=== PATIENT | female | born 1930 | race Caucasian/White ===

== ENCOUNTER 2021-05-25 11:25 | Inpatient (IN) | payer MEDICARE, BC ==
[~2021-05-25] VITALS: Ht 160 cm; Wt 80.3 kg
--- NOTE | 2021-05-25 11:31 | NUR ---
HECTOR FROM [facility] C/O INTERMITTENT LLQ ABDOMINAL PAIN X1 WEEK. PAIN IS RATED 7/10 AND IS MORE OF A DISCOMFORT. DENIES N/V, TYRONE/CHILLS. NORMAL BOWEL MOVEMENTS. GLUCOSE 265 PER PARAMEDICS. NONAMBULATORY. ABDOMEN IS BLOATED AND SLIGHTLY TENDER TO PALPATION. MD AT BEDSIDE.
--- NOTE | 2021-05-25 11:40 | NUR ---
PT ON MONITOR
--- NOTE | 2021-05-25 11:46 | NUR ---
BLOOD SAMPLE OBTAINED AND SENT TO LAB
--- NOTE | 2021-05-25 11:46 | NUR ---
IRRIGATION EQUIPMENT MECHANIC AT BEDSIDE
--- NOTE | 2021-05-25 11:48 | NUR ---
PT TAKEN TO CT
[2021-05-25] MEDS ORDERED: FURO-145 PO (11:59)
[2021-05-25] MEDS ORDERED: MULT-1160 PO (11:59)
[2021-05-25] MEDS ORDERED: TRAZ-182 PO (11:59)
[2021-05-25] MEDS ORDERED: ACET-2605 PO (11:59)
[2021-05-25] MEDS ORDERED: LEVO75TA7 PO (11:59)
[2021-05-25] MEDS ORDERED: TROS20TA3 PO (11:59)
[2021-05-25] MEDS ORDERED: HYDR500C2 PO (11:59)
[2021-05-25] MEDS ORDERED: TURM538C PO (11:59)
[2021-05-25] MEDS ORDERED: UBID100C13 PO (11:59)
[2021-05-25] MEDS ORDERED: MELA5TAB PO (11:59)
[2021-05-25] MEDS ORDERED: CHOL100062 PO (11:59)
[2021-05-25] MEDS ORDERED: OMEG1CAP PO (11:59)
[2021-05-25] MEDS ORDERED: CA C1TAB98 PO (12:02)
--- NOTE | 2021-05-25 12:02 | NUR ---
[facility] [phone].
[2021-05-25 12:06] LABS: BASOPHILS # (AUTO) 0.2 K/uL (0.0-0.2); BASOPHILS % (AUTO) 0.3 % (0.0-2.0); EOSINOPHILS % (AUTO) 0.1 % (0.0-6.0); HEMATOCRIT 39 % (33-45); HEMOGLOBIN 12.7 g/dL (11.5-14.8); LYMPHOCYTES # (AUTO) 0.6 K/uL (0.8-4.8); MEAN CORPUSCULAR HGB CONC 33 g/dl (31.0-36.0); MEAN CORPUSCULAR VOLUME 117 fL (82-100); MONOCYTES # (AUTO) 1.6 K/uL (0.1-1.30); MONOCYTES % (AUTO) 2.8 % (2.0-12.0); NEUTROPHILS # (AUTO) 55.5 K/uL (1.8-8.9); NEUTROPHILS % (AUTO) 95.8 % (43.0-81.0); PLATELET COUNT (AUTO) 601 K/uL (150-450); RED BLOOD CELL COUNT(AUTO) 3.31 MIL/uL (4.0-5.2)
--- NOTE | 2021-05-25 12:07 | NUR ---
RETURNED FROM CT, BACK ON MONITOR, PLACED ON NASAL CANNULA 3L. VITALS ARE STABLE
[2021-05-25 12:10] LABS: WHITE BLOOD COUNT (AUTO) 57.9 K/uL (4.3-11.0)
[2021-05-25 12:16] LABS: CALCIUM, SERUM 10.8 mg/dL (8.5-10.1); CARBON DIOXIDE 27 mmol/L (21-32); CHLORIDE 98 mmol/L (98-107); GLUCOSE 250 mg/dL (74-106); POTASSIUM 5.1 mmol/L (3.5-5.1); SODIUM SERUM 133 mmol/L (136-145); UREA NITROGEN, BLOOD 39 mg/dL (7-18)
[2021-05-25 12:20] LABS: ALANINE AMINOTRANSFERASE 31 U/L (12-78); ALKALINE PHOSPHATASE 166 U/L (46-116); ASPARTATE AMINOTRANSFERASE 32 U/L (15-37); BILIRUBIN,DIRECT 0.1 mg/dL (0.0-0.2); BILIRUBIN,TOTAL 0.5 mg/dL (0.2-1.0); LIPASE 63 U/L (73-393); TOTAL PROTEIN, SERUM 7.9 g/dL (6.4-8.2)
[2021-05-25 12:49] LABS: BAND % (MANUAL) 2 % (0.0-5.0); LYMPHOCYTES % (MANUAL) 1 % (16-48); MONOCYTES % (MANUAL) 1 % (0-11.0); NEUTROPHILS % (MANUAL) 96 (42-76)
--- NOTE | 2021-05-25 12:55 | NUR ---
CALLED [facility] AND PAGED DR. MOYA
[2021-05-25] MEDS ORDERED: IV NS 0.9% 1,000 ML BAG IV ONE (13:00)
[2021-05-25] MEDS ORDERED: FLAGYL/NS RTU 500 MG/100 ML PIGGYBACK IV ONE (13:00)
[2021-05-25] MEDS ORDERED: PIPERACILLIN /TAZOBACTAM 3.375 G in IV D5W 50 ML IV ONE (13:00)
--- NOTE | 2021-05-25 13:00 | NUR ---
2ND IV STARTED IN L WRIST 18G
--- NOTE | 2021-05-25 13:10 | NUR ---
SRIDHAR'S PHONE ([place]arrato) [phone]. SON'S PHONE [phone].
--- NOTE | 2021-05-25 13:22 | NUR ---
ANIMAL SHELTER SUPERVISOR (ANNAT) [phone]
--- NOTE | 2021-05-25 13:23 | NUR ---
IV FLUIDS RUNNING. PT TOLERATING WELL
[2021-05-25] MEDS ORDERED: IV D5/0.45 NACL 1,000 ML IV PRN (14:00)
[2021-05-25] MEDS ORDERED: ONDANSETRON HCL/PF 4 MG/2 ML VIAL IVP PRN (14:00)
[2021-05-25] MEDS ORDERED: DEXTROSE 50%-WATER 50 ML DISP.SYRIN IV PRN (14:00)
[2021-05-25] MEDS ORDERED: Z GUARD REMEDY 2 OZ OINT TP PRN (14:00)
--- NOTE | 2021-05-25 14:28 | NUR ---
COVID PCR SAMPLE OBTAINED AND SENT TO LAB
[2021-05-25 14:30] VITALS: BP 160/103
--- NOTE | 2021-05-25 16:12 | NUR ---
REPORT GIVEN TO THE FLOOR NURSE; CONTINUE PLAN OF CARE ACCEPTED BY SURGERY - DR. CASTRO - AWARE - CASE PRESENTED BY DR. SAINZ
--- NOTE | 2021-05-25 16:30 | NUR ---
RN NOTES RECEIVED PT FROM ER, ON 2L NC WITH O2 SATURATION OF 95%, TEMP 98.3, HR 102, RR 18, BP 160/103. PT COMPLAINING OF ABDOMINAL DISCOMFORT AND DRY MOUTH. PT HAS RIGHT AC 20G SALINE LOCK, FLUSHED, WITH DRESSING DRY AND IN TACT. SKIN CHECK DONE, AND SKIN ISSUES DOCUMENTED WITH PICTURES IN THE CHART. BELONGINGS COLLECTED AND DOCUMENTED. ORIENTED TO ROOM, SAFETY MEASURES IN PLACE WITH BED IN LOWEST LOCKED POSITION, CALL LIGHT WITHIN REACH AND BED ALARM ON.
[2021-05-25] MEDS: ENOXAPARIN SODIUM 30 MG/0.3 ML DISP.SYRIN SQ SCH (17:23)
[2021-05-25] MEDS: METRONIDAZOLE 500MG/ NS 100ML 500 MG in PREMIX 1 EA IV SCH (17:29)
--- NOTE | 2021-05-25 17:30 | NUR ---
RN NOTES SPOKE WITH DAUGHTER, CHRISTINE NEGRO [phone]. WANTS TO BE UPDATED WITH PLAN OF CARE. COMMUNICATED WITH SURGEON REGARDING FAMILY CONCERNS. PT HAS A CORNER CUTTER MACHINE OPERATOR ANATT - [phone] WHO SHOULD BE KEPT UPDATED WITH CARE.
[2021-05-25] MEDS: MORPHINE SULFATE INJ 2 MG/ML DISP.SYRIN IV PRN (17:38)
--- NOTE | 2021-05-25 17:50 | NUR ---
RN NOTES PT COMPLAINING 8/10 ABDOMINAL PAIN, GAVE PRN MORPHINE.
[2021-05-25] MEDS ORDERED: ZOSYN IVPB 3.375 G in IV D5W 50ml IV SCH (18:00)
[2021-05-25] MEDS ORDERED: PIPERACILLIN /TAZOBACTAM 4.5 G in IV D5W 50 ML IV SCH (18:00)
--- NOTE | 2021-05-25 19:00 | NUR ---
RN NOTES PT NPO, TO HAVE PROCEDURE @8430 05/26, CONSENTS SIGNED AND IN THE CHART. ENDORSED TO NEXT SHIFT.
[2021-05-25] MEDS: BLOOD SUGAR DIAGNOSTIC 1 EACH STRIP IN SCH (19:03)
--- NOTE | 2021-05-25 19:10 | NUR ---
RN NOTES RECEIVED PATIENT IN BED A/O X4.NO SIGN OF DISTRESS, NO SOB. WITH OXYGEN INHALATION AT 2LPM VIA NASAL CANULA WITH SATURATION OF 99%. WITH IV ACCESS AT R AC G 20 AND L ARM G 18 PATENT FLUSHES WELL. WITH SANZ CATHETER CONNECTED TO URINE BAG DRAINING YELLOWISH URINE. SAFETY MEASURE IN PLACE, HOB ELEVATED, BED ON LOWEST POSITION AND LOCKED. CALL LIGHT WITHIN REACH. WILL CONTINUE TO MONITOR
[2021-05-25] MEDS: INSULIN REGULAR, HUMAN 100 UNIT/ML 3 ML VIAL SQ PRN (19:16)
--- NOTE | 2021-05-25 20:45 | NUR ---
RN NOTES SEEN BY BEL MENA WITH NEW ORDER TO COLLECT STOOL FOR C-DIFF
[2021-05-25] MEDS: CEFTRIAXONE 1 G in IV D5W 50 ML IV SCH (23:49)
[2021-05-26] VITALS: BP 114/48
--- NOTE | 2021-05-26 | NUR ---
BS 234 MG/DL, 4 UNITS REGULAR INSULIN PER SLIDING SCALE GIVEN
[2021-05-26] MEDS: INSULIN REGULAR, HUMAN 100 UNIT/ML 3 ML VIAL SQ PRN (00:32)
[2021-05-26] MEDS: METRONIDAZOLE 500MG/ NS 100ML 500 MG in PREMIX 1 EA IV SCH ×5 (00:34→23:57)
[2021-05-26] MEDS: BLOOD SUGAR DIAGNOSTIC 1 EACH STRIP IN SCH ×4 (05:24→23:58)
[2021-05-26] MEDS ORDERED: FENTANYL PF 100MCG/2ML AMPUL ONE (06:23)
[2021-05-26] MEDS ORDERED: HYDROMORPHONE INJ 2 MG/ML DISP.SYRIN ONE (06:24)
[2021-05-26] MEDS ORDERED: FENTANYL PF 250MCG/5ML AMPUL ONE (06:24)
[2021-05-26] MEDS ORDERED: MIDAZOLAM HCL 2 MG/2ML VIAL ONE (06:24)
[2021-05-26] MEDS ORDERED: ROCURONIUM BROMIDE 50 MG/5 ML ONE (06:25)
[2021-05-26] MEDS ORDERED: FAMOTIDINE/PF INJ 20 MG/2 ML VIAL IV ONE (06:25)
[2021-05-26] MEDS ORDERED: CLINDAMYCIN PHOSPHATE IV 600 MG/4 ML VIAL ONE (06:26)
--- NOTE | 2021-05-26 06:49 | NUR ---
RN CLOSING NOTES PATIENT IN BED NO DISTRESS, NO SOB. STILL WITH ONGOING IVF OF D5 1/2 NS @75CC/HR . WITH O2 INHALATION AT 2 LPM/MIN VIA NC TOLETARED WELL SATURATION OF 98%. WITH SANZ CONNECTED TO URINE BAG PATENT DRAINING WELL. ALL DUE MEDS GIVEN ORDERED. PATIENT STILL ON NPO. FOR OR TODAY CONSENT AT THE CHART. BELONGINGS WILL ENDORSED TO MORNING NURSE. SAFETY MEASURE IN PLACE, HOB ELEVATED, CALL LIGHT WITHIN REACH. ENDORSED
[2021-05-26] MEDS ORDERED: ANESTHESIA TRAY IN PYXIS 1 EA TRAY MC ONE (07:01)
[2021-05-26] MEDS ORDERED: BUPIVACAINE MPF 0.5% W/EPI INJ 30 ML VIAL ONE (07:02)
[2021-05-26] MEDS ORDERED: LIDOCAINE 1% INJ 50 ML MDV IJ ONE (07:02)
[2021-05-26] MEDS ORDERED: SEVOFLURANE 250 ML BOTTLE IH ONE (07:05)
--- NOTE | 2021-05-26 07:05 | NUR ---
CT SCAN SPECIAL PROCEDURES TECHNOLOGIST NOTES PT TAKEN TO PROCEDURE BY OR IN STABLE CONDITION.
--- NOTE | 2021-05-26 10:24 | NUR ---
AIRPLANE MECHANIC APPRENTICE NOTES [facility] AND IN TACT ON THE ABDOMEN. PT GIVEN ICE CHIPS PER MAE. COVID RAPID TEST DONE IN OR, CAME BACK NEGATIVE. VITAL SIGNS STABLE, TEMP 98.1, HR 84, RR 18, O2 SATURATION 97%, AND BP 104/59. PT TO RESUME D5 1/2 NS @ 75ML/HR.
[2021-05-26 10:30] VITALS: BP 104/59
[2021-05-26] MEDS: LEVOTHYROXINE INJ 100 MCG VIAL IV SCH (10:56)
[2021-05-26] MEDS: PANTOPRAZOLE 40 MG VIAL IV SCH (10:56)
[2021-05-26 12:00] VITALS: BP 112/40
[2021-05-26 12:15] LABS: BASOPHILS # (AUTO) 0.1 K/uL (0.0-0.2); BASOPHILS % (AUTO) 0.2 % (0.0-2.0); EOSINOPHILS % (AUTO) 0.1 % (0.0-6.0); HEMATOCRIT 36 % (33-45); HEMOGLOBIN 11.3 g/dL (11.5-14.8); LYMPHOCYTES # (AUTO) 0.6 K/uL (0.8-4.8); LYMPHOCYTES % (AUTO) 1.1 % (20.0-44.0); MEAN CORPUSCULAR HGB CONC 32 g/dl (31.0-36.0); MEAN CORPUSCULAR VOLUME 121 fL (82-100); MONOCYTES # (AUTO) 1.1 K/uL (0.1-1.30); MONOCYTES % (AUTO) 1.9 % (2.0-12.0); NEUTROPHILS % (AUTO) 96.7 % (43.0-81.0); PLATELET COUNT (AUTO) 449 K/uL (150-450); RED BLOOD CELL COUNT(AUTO) 2.97 MIL/uL (4.0-5.2)
[2021-05-26 12:25] LABS: WHITE BLOOD COUNT (AUTO) 57.8 K/uL (4.3-11.0)
[2021-05-26 12:35] LABS: CALCIUM, SERUM 9.1 mg/dL (8.5-10.1); CREATININE 0.8 mg/dL (0.6-1.3); MAGNESIUM 2.9 mg/dL (1.8-2.4); PHOSPHORUS 5.1 mg/dL (2.5-4.9); POTASSIUM 3.8 mmol/L (3.5-5.1)
[2021-05-26 13:38] LABS: THYROID STIMULATING HORMONE 6.07 uIU/mL (0.358-3.74)
[2021-05-26 15:20] LABS: LYMPHOCYTES % (MANUAL) 2 % (16-48); NEUTROPHILS % (MANUAL) 96 (42-76)
[2021-05-26 15:21] LABS: MONOCYTES % (MANUAL) 2 % (0-11.0)
[2021-05-26 16:00] VITALS: BP 98/53
--- NOTE | 2021-05-26 18:55 | NUR ---
WOODS OVERSEER NOTES PT STILL NPO, PER SURGERY OK TO HAVE ICE CHIPS. NO COMPLAINTS OF PAIN OR SOB AT THIS TIME. SAFETY MEASURES IN PLACE WITH HOB ELEVATED 30 DEGREESS, BED IN LOWEST LOCKED POSITION, CALL LIGHT WITHIN REACH AND BED ALARM ON.
[2021-05-26 20:00] VITALS: BP 97/53
[2021-05-26] MEDS: CEFTRIAXONE 1 G in IV D5W 50 ML IV SCH (20:51)
[2021-05-26] MEDS: IV NS 0.9% 1,000 ML IV PRN (20:51)
--- NOTE | 2021-05-26 20:51 | NUR ---
RN NOTE PATIENT NOTED WITH LEFT WRIST 18G IV WITH NO BLOOD RETURN. REMOVED. INTACT. REINSERTED 22G ON LEFT FOREARM, PATENT WITH GOOD BLOOD RETURN. PATIENT ON NS AT 100 ML/HR. TOLERATING WELL. NO INFILTRATION NOTED. CALL LIGHT WITHIN REACH.
[2021-05-26] MEDS: ENOXAPARIN SODIUM 30 MG/0.3 ML DISP.SYRIN SQ SCH (21:07)
[2021-05-27] VITALS (7 sets, daily range): BP systolic 98–112; BP diastolic 43–76
--- NOTE | 2021-05-27 | NUR ---
RN NOTE BS 106 AT THIS TIME. WILL CONTINUE TO MONITOR.
--- NOTE | 2021-05-27 00:10 | NUR ---
RN NOTE PATIENT NOTED WITH LEFT FOREARM 22 G IV INFILTRATED. REMOVED. PATIENT LEFT ARM ELEVATED. APPLIED PRESSURE AT SITE AND COVERED WITH GAUZE DRESSING. DENIES PAIN AT THE SITE. REINSERTED 24 G ON RIGHT FOREARM, PATENT WITH GOOD BLOOD RETURN. WILL CONTINUE TO MONITOR.
[2021-05-27] MEDS: IV NS 0.9% 1,000 ML IV PRN (05:12)
[2021-05-27] MEDS: METRONIDAZOLE 500MG/ NS 100ML 500 MG in PREMIX 1 EA IV SCH ×4 (05:18→23:05)
[2021-05-27] MEDS: BLOOD SUGAR DIAGNOSTIC 1 EACH STRIP IN SCH ×4 (05:37→23:43)
--- NOTE | 2021-05-27 07:39 | NUR ---
RN OPENING NOTES Patient Alert and oriented x 4, complains of pain on sacral wound. On NC 2 L. Call light placed within reach, bed at lowest position
[2021-05-27 07:47] LABS: BASOPHILS # (AUTO) 0.1 K/uL (0.0-0.2); BASOPHILS % (AUTO) 0.2 % (0.0-2.0); EOSINOPHILS % (AUTO) 0.4 % (0.0-6.0); HEMATOCRIT 34 % (33-45); HEMOGLOBIN 10.8 g/dL (11.5-14.8); LYMPHOCYTES # (AUTO) 1.1 K/uL (0.8-4.8); LYMPHOCYTES % (AUTO) 1.8 % (20.0-44.0); MEAN CORPUSCULAR HGB CONC 32 g/dl (31.0-36.0); MEAN CORPUSCULAR VOLUME 121 fL (82-100); MONOCYTES % (AUTO) 1.7 % (2.0-12.0); NEUTROPHILS # (AUTO) 55.5 K/uL (1.8-8.9); NEUTROPHILS % (AUTO) 95.9 % (43.0-81.0); PLATELET COUNT (AUTO) 443 K/uL (150-450); RED BLOOD CELL COUNT(AUTO) 2.84 MIL/uL (4.0-5.2)
[2021-05-27 07:50] LABS: ALBUMIN 2.4 g/dL (3.4-5.0); BILIRUBIN,TOTAL 0.3 mg/dL (0.2-1.0); CALCIUM, SERUM 8.5 mg/dL (8.5-10.1); CREATININE 0.8 mg/dL (0.6-1.3); MAGNESIUM 2.4 mg/dL (1.8-2.4); PHOSPHORUS 4.4 mg/dL (2.5-4.9); POTASSIUM 3.9 mmol/L (3.5-5.1); TOTAL PROTEIN, SERUM 6.7 g/dL (6.4-8.2)
[2021-05-27 07:58] LABS: WHITE BLOOD COUNT (AUTO) 57.8 K/uL (4.3-11.0)
[2021-05-27] MEDS: PANTOPRAZOLE 40 MG VIAL IV SCH (08:40)
[2021-05-27] MEDS: LEVOTHYROXINE INJ 100 MCG VIAL IV SCH (08:50)
--- NOTE | 2021-05-27 08:58 | NUR ---
WOUND CARE CONSULT: PT PRESENTS WITH SACRAL DEEP TISSUE INJURY IN EVOLUTION WITH SCARRING AND OPEN AREAS TO LOWER BUTTOCKS/GLUTEAL FOLDS, PRESENT ON ADMISSION. RECOMMENDATIONS MADE FOR SKIN PROTECTION. DISCUSSED WITH NURSING STAFF. SURGICAL CONSULT FOR SACRAL WOUND CALLED TO DR TORRES. PT BE PLACED ON FIRST STEP LOW AIRSS MATTRESS. IN AGREEMENT WITH PLAN OF CARE. Addendum: 05/27/21 at 0859 by BRYANNA CHO WNDNU Amended: Links added.
[2021-05-27 09:04] LABS: LYMPHOCYTES % (MANUAL) 3 % (16-48); MONOCYTES % (MANUAL) 4 % (0-11.0); NEUTROPHILS % (MANUAL) 93 (42-76)
--- NOTE | 2021-05-27 14:47 | NUR ---
SS Consult: SS consult requested for sacral wound from Facility. Pt. is an 89-year-old female wo was residing. During assessment, pt. is in bed laying down, oriented x3, alert, and cooperative. Pt. was capable of following directions and made appropriate eye contact during interview. Pt. reported no Hx of mental health, substance abuse, SI/HI and denies hallucinations. Pt. has been living at a [facility] [[address] [place] [address], ] since August of 2020. Pt. demonstrates adequate insight to the reason for hospitalization. Pt. stated she had abdominal pain, so the [facility] called the ambulance. Pt. had many scars on her face but avoided the question when asked by SW. Pt. stated that the [facility] handles her ADLs. SW assess for support system. Pt. stated the only support system are the [facility] and her daughter, Ernestina [[phone]]. Pt. has no complaints regarding care provided at facility. Pt. mentioned that Ernestina visits once a week. Pt. stated she is not ambulatory and uses an electric wheelchair. Plan: Pt. stated she would like to return to [facility] [[address] [place] [address], ] when ready for DC. SW provided pt. with senior resources and pt. accepted. ABUSE PREVENTION: ELDER ABUSE HOTLINE (21/02) ADULT PROTECTIVE SERVICES HOTLINE LONG-TERM CARE [facility] Region AREA ON AGING (HOTLINE) ADULT DAY HEALTH CARE CARE CENTERS: Private pay or Medi-tana funded adult day care [facility] , [facility] Services , [facility] , [facility] Adult Day Health Care , [facility] Adult Day Health Care , [facility] Adult Daycare Center , [place] ONE Generation Center , [place] [facility] , [place] ALZHEIMERS DISEASE/DEMENTIA: Alzheimers Association Helpline [facility] Chapter www.alz.org/[facility] Department of Aging www.lacity.org Family Caregiver [place] www.caregiver.org [place] Caregiver Resources Center/Family Support www.[facility].org CANCER RESOURCES: [place] Cancer Society www.cancer.org Cancer Support Community www.CancerSupportVvsb.org: CancerCare www.cancercare.org [facility] Cancer Support [place] www.sage[facility] healthcare - lander - lander.org [facility] ASSOCIATIONS: AARP www.aarp.org ALS Association (ask for Sri) www.als.org Egyptian Diabetes Association www.diabetes.org Egyptian Heart Association www.heart.org Egyptian Lung Association www.lungusa.org Egyptian Parkinson Disease Association www.apdaparkinson.org Egyptian [place] , www.redcross.org Arthritis Foundation www.arthritis.org Crohns & Colitis Foundation of Egyptian www.ccfa.org/chapters/samaria National Multiple Sclerosis Society www.nationalmssociety.org Myasthenia Gravis Foundation www.myasthenia-ca.org National Stroke Association www.stroke.org CONSERVATORSHIP & GUARDIANSHIP: AARP Rylie Wahl Legal Services Center for Health Care Rights Eldercare Information and Referral Water Quality Specialist [facility]: [facility] Bar Referral Service [facility] Legal Services Office of the Public Guardian [place] EYESIGHT DISORDER RESOURCES: Egyptian Macular Degeneration Foundation [facility] www.[facility] rich[facility] community hospitaltitdoe run.org GRIEF AND BEREAVEMENT RESOURCES: The Gathering Place , [facility] THE HOPE Connection , [facility] / [facility] Bereavement Center , [place] HEARING DISORDER RESOURCES: [place] Telephone Access Program Deaf and Disabled Telecommunications Program www.ddtp.[facility] gardens.ca.gov HearRx Hearing Centers ([place]) Better Hearing Systems , [place] GLAD ([facility] Agency on Deafness) V/ TTY; Applied Research Director , [facility] Hearing [facility] -low income hearing aid assistance www.[facility] punta gordafoundation.org [place] Hearing Care , Kamari HELP AT HOME CAREGIVER SUPPORT: In Home Support Services (Must have Medi-Tana to be eligible) *Ask for a list of agencies that provide services to assist with care in the home. Local Senior Centers also have listings of care providers. HOME SAFETY MODIFICATIONS AND EQUIPMENT: Senior centers have additional referrals. [place] Housing and Community Investment Dept. Handyworker Program (low income) or Visit http://hcidla.[facility].org/abz-aivqoj-pn for more information National Seating and Mobility and/or ; Forever Active www.foreveractivemed.Global Renewables Stay Home Safe www.Stayhomesafe.Global Renewables LIFE ALERT RESPONSE SYSTEM: MobiliBuy Services 606-243-9954 www. Ambient Industries Life Alert 069-905-2539 www.Peas-Corp Life Station 853-087-8119 www.Well.Global Renewables Safe Return 268-240-1342 www.alz.or/safereturn Cell Phones for Seniors www.Solvate MEALS AND FOOD PROGRAMS: [place]rell Meals on Wheels [phone] [place] Meals on Wheels [phone] [facility] [phone] [place] to the Homebound [phone] [place] to the Homebound [phone] [facility] to the Homebound [phone] [facility] to the Homebound [phone] [facility] Sumanth [place] [phone] [facility] Services [phone] ONE Generation [phone] [facility] [phone] [facility] [phone] Meals on Wheels [phone] For all ages: $6.85/ meal w side. Delivered M-F from 10 am-1pm. Application and payment is done over the phone. Frozen meals available for weekends. Emergency Food [facility] [phone] [facility] Feather Maker [phone] [facility] [phone] [facility]- Brown bag lunches [phone] [facility] [phone] MEAL/GROCERY DELIVERY PROGRAMS: FazalReplaced by [facility] Gourmet Meals [phone]- [facility] [phone]- [facility] Magic Kitchen [phone] Moms Meals [phone] (ask Muñiz for Discount Select grocery stores may provide delivery. MEDICAL INSURANCE SUPPORT SERVICES: Center for Health Care Rights [phone] Health Insurance Counseling/Advocacy Programs (HICAP)-Must have Medicare. Offers counseling for Medi-Tana eligibility [phone] Department of Public Feather Maker [phone] www.[facility].ca.gov Medicare [phone] www.socialsecurity.org Social Security [phone] SENIOR ACTIVITY PROGRAMS: *Contact a local senior center, adult school, recreation facility or community [facility] for education, fitness, recreation, and social programs. Aquatic Therapy and Adapted Exercise programs through [facility] [phone] Encore at [facility] [phone] www.motion picture & television hospital/encore [facility]- Senior Friends [phone] Jolly Senior Programs 166-797-2766 www.oasisnet.org Suddenly 65 www.igzucctw30.Global Renewables SENIOR CENTERS: [facility] [phone] [facility] Hospital[facility] [phone] [facility] [phone] [facility] [phone] [facility] [phone] [facility] [phone] [facility] [phone] [facility] [phone] One [facility] [phone] [facility] [phone] [facility] [phone] [facility] [phone] [facility] [phone] TRANSPORTATION: Local [facility] may have applications for transportation programs and additional resources. ACCESS Services [phone] Transportation for seniors and disabled persons 7 days a week requiring 254 hr. advance reservation. Must apply and register for program joyce eligible. CITY RIDE 301-635-8127 or [phone] Transportation for seniors and persons with ADA card/metro disabled card in the [facility]. M-F only. Must register for services. ONE GENERATION [phone] Serves 65 years + in conjunction with MD Synergy Solutions ride program. Must be registered with both programs. A to B Transport [phone] Provides wheelchair/gurney van service. Adult Medical Transport [phone] Accepts [facility]-tana with prior authorization. Care Van [phone] Provides wheelchair Transport. [facility] Wide Transportation [phone] Provides gurney service Gentle Care [phone] Gurney Transport. All Town Transportation [phone] wheelchair & gurney transport D Transportation [phone] wheelchair & gurney transport [place] Non-Emergency Transport [phone] wheelchair & gurney transport Independent Living Center [phone] Short Term Transportation primarily for adults with disabilities on social security income. Nominal fee may apply and a reservation is required. [facility] Cab [phone] or [phone] Faneari [phone] [place] [address] Referral Services -[phone] For additional programs & services VETERANS RESOURCES: Submissions for Aid and Attendance should be done directly to Federal VA office locatd at : [address] [address] X110 National Caregiver Support Line [phone] Tana Abbott Veterans Services Field Office [phone] [place] Department of Affairs [phone] Pension Information [phone]
[2021-05-27] MEDS ORDERED: METRONIDAZOLE 500 MG TABLET PO SCH (17:00)
--- NOTE | 2021-05-27 17:39 | NUR ---
PATIENT SANZ CLOGGED ,DIAPER SOAKED WITH URINE UNABLE TO FLUSH ,WILL CHANGE SANZ.
--- NOTE | 2021-05-27 18:00 | NUR ---
FR 16 mitchell inserted aseptically obtained 200ml yellowish color urine,bedside bag connected.
--- NOTE | 2021-05-27 18:26 | NUR ---
RN CLOSING NOTES: PT HAD MIDLINE ON CASI PLACED 18 GAUGE. RT. FOREARM IV's TAKEN OUT. Pt. A/O x 4, STABLE CONDITION, RESPONDS TO VERBAL STIMULI. SANZ CATHETER REPLACED DUE TO URINARY RETENTION. BED PLACED IN LOWEST POSITION. CALL LIGHT IN PLACE.
--- NOTE | 2021-05-27 20:00 | NUR ---
ms rn notes Received pts in bed awake a/o x4 , on tele sr on the monitor on 2 liters of o2 via nc [id number]%no sob no distress noted v/s stable afebrile no c/o of pain , all due meds given as ordered ,npo status may have ice chips . no sob no distress noted all needs attended too call light within reach , bed locked and in low position . with right upper arm midline G#18 intact and patent Pts on iv ns at 100cc/hr tolerating well. will continue to monitor pts.
[2021-05-27] MEDS: CEFTRIAXONE 1 G in IV D5W 50 ML IV SCH (20:09)
[2021-05-27] MEDS: ENOXAPARIN SODIUM 30 MG/0.3 ML DISP.SYRIN SQ SCH (21:22)
[2021-05-27] MEDS: IV D5/ 0.9% NACL 1,000 ML IV PRN (23:39)
--- NOTE | 2021-05-27 23:48 | NUR ---
ms rn notes Blood sugar for 12mn is 62 no coverage given spoke to german morales software implementation project manager relayed blood sugar result pts currently on ivf ns at 100cc/hr , carmen porter with new order change ivf to d5ns at 100cc/.hr order noted and carried oput.
[2021-05-28 04:00] VITALS: BP 117/53
[2021-05-28] MEDS: METRONIDAZOLE 500MG/ NS 100ML 500 MG in PREMIX 1 EA IV SCH ×4 (05:18→23:18)
[2021-05-28] MEDS: BLOOD SUGAR DIAGNOSTIC 1 EACH STRIP IN SCH ×3 (05:36→17:37)
[2021-05-28] MEDS: INSULIN REGULAR, HUMAN 100 UNIT/ML 3 ML VIAL SQ PRN (05:39)
--- NOTE | 2021-05-28 05:42 | NUR ---
ms rn notes Blood sugar for 6am is 81 , no insulin coverage given.
--- NOTE | 2021-05-28 06:30 | NUR ---
ms rn notes Pts in bed awake a/ox3 still npo may have icechips, with f/c intact and patent .pts is stable afebrile remains on ivf d5ns at 100 cc/hr ordered will endorse to rn day shift for continuity of care.
[2021-05-28 06:46] LABS: BASOPHILS # (AUTO) 0.1 K/uL (0.0-0.2); BASOPHILS % (AUTO) 0.2 % (0.0-2.0); EOSINOPHILS % (AUTO) 0.3 % (0.0-6.0); HEMATOCRIT 32 % (33-45); HEMOGLOBIN 10.4 g/dL (11.5-14.8); LYMPHOCYTES # (AUTO) 0.9 K/uL (0.8-4.8); LYMPHOCYTES % (AUTO) 1.9 % (20.0-44.0); MEAN CORPUSCULAR HGB CONC 32 g/dl (31.0-36.0); MEAN CORPUSCULAR VOLUME 120 fL (82-100); MONOCYTES # (AUTO) 0.9 K/uL (0.1-1.30); MONOCYTES % (AUTO) 1.8 % (2.0-12.0); NEUTROPHILS # (AUTO) 46.7 K/uL (1.8-8.9); NEUTROPHILS % (AUTO) 95.8 % (43.0-81.0); PLATELET COUNT (AUTO) 437 K/uL (150-450); RED BLOOD CELL COUNT(AUTO) 2.69 MIL/uL (4.0-5.2)
[2021-05-28 06:48] LABS: WHITE BLOOD COUNT (AUTO) 48.7 K/uL (4.3-11.0)
[2021-05-28 07:05] LABS: CALCIUM, SERUM 8.3 mg/dL (8.5-10.1); CREATININE 0.8 mg/dL (0.6-1.3); MAGNESIUM 1.9 mg/dL (1.8-2.4); PHOSPHORUS 3.2 mg/dL (2.5-4.9); POTASSIUM 3.5 mmol/L (3.5-5.1)
[2021-05-28] MEDS: LEVOTHYROXINE INJ 100 MCG VIAL IV SCH (07:51)
--- NOTE | 2021-05-28 08:03 | NUR ---
RN OPENING NOTE- PT IS AWAKE ALERT ORIENTED TO PERSON PLACE CONFUSED, VS STABLE, BS- 105. SANZ CATHETER DRAINING CLEAR YELLOW UA TO GRAVITY, IV FLUIDS D5 NS AT 100/HR,. ADJUSTED IN BED, SIDE RAILS UP, CALL LIGHT CLOSE, MONITOR
[2021-05-28 08:07] LABS: LYMPHOCYTES % (MANUAL) 5 % (16-48); MONOCYTES % (MANUAL) 2 % (0-11.0); NEUTROPHILS % (MANUAL) 93 (42-76)
[2021-05-28] MEDS: PANTOPRAZOLE 40 MG VIAL IV SCH (09:16)
[2021-05-28 12:00] VITALS: BP 114/50
--- NOTE | 2021-05-28 12:30 | NUR ---
RN NOTE- UA COLLECTED AND SENT FOR CX
--- NOTE | 2021-05-28 18:50 | NUR ---
RN CLOSING NOTE- PT CONFUSED IN BED, ALERT INTERACTIVE , VS STABLE, NPO X ICE CHIPS. DR FLORES ASSESSED PT AND PLACED ORDERS. SPOKE W CHRISTINE OF FAMILY. UPDATED. SIDE RAILS UP X 4, BED LOCKED, MONITOR ASSIST
[2021-05-28 20:00] VITALS: BP 91/50
--- NOTE | 2021-05-28 20:00 | NUR ---
ms rn notes Received pts in bed awake a/o x4 , On 2 liters of o2 via nc sating 98% ,no sob no distress noted v/s stable afebrile no c/o of pain , all due meds given as ordered ,CLEAR LIQUIDS , may have ice chips . no sob no distress noted all needs attended too call light within reach , bed locked and in low position . with right upper arm midline G#18 intact and patent Pts on iv D5ns at 100cc/hr tolerating well. will continue to monitor pts.
[2021-05-28] MEDS: CEFTRIAXONE 1 G in IV D5W 50 ML IV SCH (20:10)
[2021-05-28] MEDS: ENOXAPARIN SODIUM 30 MG/0.3 ML DISP.SYRIN SQ SCH (21:43)
[2021-05-29] MEDS: BLOOD SUGAR DIAGNOSTIC 1 EACH STRIP IN SCH ×5 (00:16→23:39)
--- NOTE | 2021-05-29 00:18 | NUR ---
ms rn notes Blood sugar for foe 12mn is 121 no insulin coverage given ,will check blood sugar again at 6am ,pts remain on d5ns at 100cc/hr as ordered.
[2021-05-29] MEDS: INSULIN REGULAR, HUMAN 100 UNIT/ML 3 ML VIAL SQ PRN ×3 (00:19→23:41)
[2021-05-29] MEDS: IV D5/ 0.9% NACL 1,000 ML IV PRN ×2 (02:56→15:08)
[2021-05-29 04:00] VITALS: BP 108/61
[2021-05-29] MEDS: METRONIDAZOLE 500MG/ NS 100ML 500 MG in PREMIX 1 EA IV SCH ×4 (05:04→23:39)
--- NOTE | 2021-05-29 05:24 | NUR ---
ms rn notes Blood sugar for 6am is 124 no coverage given per sliding scale.
--- NOTE | 2021-05-29 06:36 | NUR ---
ms rn notes Pts in bed awake a/ox3 awake comfortable in bed . with f/c intact and patent .pts is stable afebrile remains on ivf d5ns at 100 cc/hr ordered will endorse to rn day shift for continuity of care.
[2021-05-29 06:45] LABS: BASOPHILS # (AUTO) 0.2 K/uL (0.0-0.2); BASOPHILS % (AUTO) 0.4 % (0.0-2.0); EOSINOPHILS % (AUTO) 0.5 % (0.0-6.0); HEMATOCRIT 33 % (33-45); HEMOGLOBIN 10.5 g/dL (11.5-14.8); LYMPHOCYTES # (AUTO) 1.2 K/uL (0.8-4.8); LYMPHOCYTES % (AUTO) 2.9 % (20.0-44.0); MEAN CORPUSCULAR HGB CONC 32 g/dl (31.0-36.0); MEAN CORPUSCULAR VOLUME 119 fL (82-100); MONOCYTES # (AUTO) 1.3 K/uL (0.1-1.30); MONOCYTES % (AUTO) 3.2 % (2.0-12.0); NEUTROPHILS # (AUTO) 38.2 K/uL (1.8-8.9); PLATELET COUNT (AUTO) 409 K/uL (150-450); RED BLOOD CELL COUNT(AUTO) 2.77 MIL/uL (4.0-5.2)
[2021-05-29 07:09] LABS: CALCIUM, SERUM 7.8 mg/dL (8.5-10.1); CREATININE 0.6 mg/dL (0.6-1.3)
--- NOTE | 2021-05-29 07:15 | NUR ---
RN OPENING NOTE PATIENT IN BED, ASLEEP, BUT EASILY AROUSABLE. PATIENT ON OXYGEN AT 2 LPM VIA NASAL CANULA WITH NO SIGNS OF LABORED BREATHING AT THIS TIME. NO COMPLAIN OF PAIN OR DISCOMFORT. PATIENT WITH RIGHT UPPER ARM MIDLINE WITH IV FLUID OF D5NS RUNNING AT 100ML/HR. WITH SANZ CATHETER TO URINE BAG WITH YELLOWISH URINE DRAINING. COMFORT MEASURES PROVIDED. SAFETY MEASURES ENSURED WITH BED LOCKED AND IN LOWEST POSITION, SIDE RAILS UP AND CALL LIGHT WITHIN REACH. WILL CONTINUE TO MONITOR PATIENT.
[2021-05-29] MEDS: LEVOTHYROXINE INJ 100 MCG VIAL IV SCH (08:02)
[2021-05-29 08:06] LABS: BAND % (MANUAL) 2 % (0.0-5.0)
[2021-05-29 08:09] LABS: POTASSIUM 2.8 mmol/L (3.5-5.1)
[2021-05-29] MEDS: PANTOPRAZOLE 40 MG VIAL IV SCH (08:15)
[2021-05-29 08:27] LABS: EOSINOPHILS % (MANUAL) 1 % (0-4)
[2021-05-29 08:30] LABS: LYMPHOCYTES % (MANUAL) 1 % (16-48); MONOCYTES % (MANUAL) 2 % (0-11.0); NEUTROPHILS % (MANUAL) 94 (42-76)
--- NOTE | 2021-05-29 09:30 | NUR ---
MS RN NOTE WITH ONGOING REPLACEMENT FOR POTASSIUM CORRECTION. TO INFUSE 6 BAGS IN TOTAL. WILL MONITOR PATIENT CLOSELY
[2021-05-29] MEDS: POTASSIUM CL. PREMIX PERIPHER. 50 ML IV SCH ×6 (09:53→16:18)
[2021-05-29 12:00] VITALS: BP 128/65
--- NOTE | 2021-05-29 14:00 | NUR ---
RN NOTE PATIENT UNABLE TO SIGN CONSENT. DAUGHTER CHRISTINE AWARE ABOUT MD ORDER FOR HIDA SCAN. DAUGHTER SPOKE WITH DR. STORY AND AGREED WITH THE PROCEDURE. CONSENT SECURED AND ATTACHED TO CHART. PATIENT SCHEDULED FOR HIDA SCAN TODAY.
--- NOTE | 2021-05-29 14:00 | NUR ---
RN NOTE SEEN BY DR. STORY AND REFERRED TO DR. GARCIA (GI) WITH ORDERS MADE, READ BACK AND VERIFIED. WILL CONTINUE TO MONITOR PATIENT.
--- NOTE | 2021-05-29 18:15 | NUR ---
NM HIDA SCAN WAS COMPLETED. TECH:RB
--- NOTE | 2021-05-29 18:40 | NUR ---
RN CLOSINGNOTE PATIENT IN BED, ASLEEP, BUT EASILY AROUSABLE. PATIENT ON OXYGEN AT 2 LPM VIA NASAL CANULA WITH NO SIGNS OF LABORED BREATHING AT THIS TIME. NO COMPLAIN OF PAIN OR DISCOMFORT. PATIENT WITH RIGHT UPPER ARM MIDLINE WITH IV FLUID OF D5NS RUNNING AT 100ML/HR. WITH SANZ CATHETER TO URINE BAG WITH YELLOWISH URINE DRAINING. AWAITING PICK-UP FOR NEXT ROUND OF HIDA SCAN. COMFORT MEASURES PROVIDED. SAFETY MEASURES ENSURED WITH BED LOCKED AND IN LOWEST POSITION, SIDE RAILS UP AND CALL LIGHT WITHIN REACH. WILL ENDORSE TO NEXT SHIFT FOR CONTINUITY OF CARE.
--- NOTE | 2021-05-29 19:00 | NUR ---
alert and orientated x4 02 on n/c she is compaining she doesn't want to wear the o2 no longer bed alarm on
[2021-05-29 20:00] VITALS: BP 110/61
[2021-05-29] MEDS: CEFTRIAXONE 1 G in IV D5W 50 ML IV SCH (20:18)
[2021-05-29] MEDS: ENOXAPARIN SODIUM 30 MG/0.3 ML DISP.SYRIN SQ SCH (21:44)
[2021-05-30 04:53] VITALS: BP 123/82
[2021-05-30] MEDS: METRONIDAZOLE 500MG/ NS 100ML 500 MG in PREMIX 1 EA IV SCH ×2 (05:32→12:58)
[2021-05-30] MEDS: IV D5/ 0.9% NACL 1,000 ML IV PRN ×2 (05:34→20:33)
[2021-05-30] MEDS: BLOOD SUGAR DIAGNOSTIC 1 EACH STRIP IN SCH ×4 (05:44→23:45)
[2021-05-30] MEDS: INSULIN REGULAR, HUMAN 100 UNIT/ML 3 ML VIAL SQ PRN (05:52)
--- NOTE | 2021-05-30 05:59 | NUR ---
CLOSING NOTES: ALERT AND ORIENTATED x4 CHANGED THE DRESSING ON HER SACRAL AREA d/t DRESSING SOILED BY HER HAVING SMALL MUSHY BM INCONTINENT NEEDS MAX ASSIST TO BE REPOSITIONED AND PULLED UP IN HER BED, WHEN TURNED TO HER SIDES AND EXPLAINATION GIVEN TO THE PATIENT WHY THIS NEED TO BE DONE SHE WILL TELL ME SHE CAN'T SLEEP ON HER SIDES SHE NEEDS TO BE ON HER BACK bLOOD SUGAR THIS am 153 2 UNITS REG INSULIN GIVEN ORDERED
[2021-05-30 06:24] LABS: BASOPHILS # (AUTO) 0.2 K/uL (0.0-0.2); BASOPHILS % (AUTO) 0.4 % (0.0-2.0); EOSINOPHILS % (AUTO) 0.5 % (0.0-6.0); HEMATOCRIT 33 % (33-45); HEMOGLOBIN 10.5 g/dL (11.5-14.8); LYMPHOCYTES # (AUTO) 1.2 K/uL (0.8-4.8); LYMPHOCYTES % (AUTO) 2.5 % (20.0-44.0); MEAN CORPUSCULAR HGB CONC 32 g/dl (31.0-36.0); MEAN CORPUSCULAR VOLUME 119 fL (82-100); MONOCYTES # (AUTO) 1.8 K/uL (0.1-1.30); MONOCYTES % (AUTO) 3.7 % (2.0-12.0); NEUTROPHILS # (AUTO) 45.3 K/uL (1.8-8.9); NEUTROPHILS % (AUTO) 92.9 % (43.0-81.0); PLATELET COUNT (AUTO) 421 K/uL (150-450); RED BLOOD CELL COUNT(AUTO) 2.74 MIL/uL (4.0-5.2)
[2021-05-30 06:43] LABS: ALBUMIN 2.2 g/dL (3.4-5.0); BILIRUBIN,TOTAL 0.3 mg/dL (0.2-1.0); CALCIUM, SERUM 7.7 mg/dL (8.5-10.1); CREATININE 0.6 mg/dL (0.6-1.3); MAGNESIUM 1.4 mg/dL (1.8-2.4); PHOSPHORUS 1.2 mg/dL (2.5-4.9); POTASSIUM 3.1 mmol/L (3.5-5.1); TOTAL PROTEIN, SERUM 6.3 g/dL (6.4-8.2)
[2021-05-30 06:51] LABS: WHITE BLOOD COUNT (AUTO) 48.7 K/uL (4.3-11.0)
--- NOTE | 2021-05-30 07:40 | NUR ---
NURSE OPENING NOTE. RECEIVE REPORT FROM OUT GOING NURSE. PATIENT IN STABLE CONDITION AT TIME OF REPORT. PATIENT IS POST LAP EXP. A/O X4. BEDREST. NS @ 100ML/HR. REFUSE TO BE TURN ON HER SIDE PER REPORT GIVEN. ALL SAFETY MEASURE IN PLACE. BED ON THE LOWEST POSITION WITH HOB ELEVATED. 3 SIDE RAIL UP. CALL LIGHT WITHIN REACH. WILL CONTINUE TO MONITOR.
[2021-05-30] MEDS: LEVOTHYROXINE INJ 100 MCG VIAL IV SCH (08:00)
[2021-05-30] MEDS: Magnesium 1GM/D5W 100ML PREMIX 100 ML IV SCH ×4 (08:09→11:52)
[2021-05-30] MEDS: PANTOPRAZOLE 40 MG VIAL IV SCH (08:44)
[2021-05-30] MEDS: POTASSIUM CL. PREMIX PERIPHER. 50 ML IV SCH ×4 (08:56→13:08)
[2021-05-30 09:07] LABS: IMMUNOGLOBULIN A, SERUM 207 mg/dL (64-422); IMMUNOGLOBULIN G, SERUM 1444 mg/dL (586-1602); IMMUNOGLOBULIN M, SERUM 344 mg/dL (26-217)
[2021-05-30 10:53] LABS: LYMPHOCYTES % (MANUAL) 2 % (16-48); MONOCYTES % (MANUAL) 2 % (0-11.0); NEUTROPHILS % (MANUAL) 96 (42-76)
[2021-05-30] MEDS ORDERED: NEUTRA PHOS 1 POWD.PACKET PO ONE (11:00)
[2021-05-30 12:00] VITALS: BP 108/75
[2021-05-30] MEDS: METRONIDAZOLE 500 MG TABLET PO SCH ×2 (17:02→21:00)
--- NOTE | 2021-05-30 19:30 | NUR ---
RN NOTES Received patien awake on her bed,a/o3, F/C draining light tea colored urine, denies pain, no SOB, call light within reach, siderailsupx2, will continue to monitor
[2021-05-30 20:00] VITALS: BP 128/69
[2021-05-30] MEDS: CEFTRIAXONE 1 G in IV D5W 50 ML IV SCH (20:33)
[2021-05-30] MEDS: ENOXAPARIN SODIUM 30 MG/0.3 ML DISP.SYRIN SQ SCH (22:06)
[2021-05-31 04:00] VITALS: BP 127/76
[2021-05-31] MEDS: IV D5/ 0.9% NACL 1,000 ML IV PRN (05:30)
[2021-05-31] MEDS: BLOOD SUGAR DIAGNOSTIC 1 EACH STRIP IN SCH ×3 (05:30→18:45)
--- NOTE | 2021-05-31 06:20 | NUR ---
RN NOTES Sleeping but arousable, denies pain, no SOB, morning care rendered, pt. needs attended
[2021-05-31 07:03] LABS: BASOPHILS # (AUTO) 0.1 K/uL (0.0-0.2); BASOPHILS % (AUTO) 0.3 % (0.0-2.0); EOSINOPHILS % (AUTO) 0.7 % (0.0-6.0); HEMATOCRIT 34 % (33-45); HEMOGLOBIN 10.8 g/dL (11.5-14.8); LYMPHOCYTES # (AUTO) 1.4 K/uL (0.8-4.8); LYMPHOCYTES % (AUTO) 2.9 % (20.0-44.0); MEAN CORPUSCULAR HGB CONC 32 g/dl (31.0-36.0); MEAN CORPUSCULAR VOLUME 119 fL (82-100); MONOCYTES # (AUTO) 2.1 K/uL (0.1-1.30); MONOCYTES % (AUTO) 4.4 % (2.0-12.0); NEUTROPHILS # (AUTO) 43.8 K/uL (1.8-8.9); NEUTROPHILS % (AUTO) 91.7 % (43.0-81.0); PLATELET COUNT (AUTO) 408 K/uL (150-450); RED BLOOD CELL COUNT(AUTO) 2.87 MIL/uL (4.0-5.2)
[2021-05-31] MEDS: LEVOTHYROXINE INJ 100 MCG VIAL IV SCH (07:30)
[2021-05-31 07:44] LABS: CALCIUM, SERUM 7.5 mg/dL (8.5-10.1); CARBON DIOXIDE 25 mmol/L (21-32); CHLORIDE 110 mmol/L (98-107); CREATININE 0.5 mg/dL (0.6-1.3); GLUCOSE 179 mg/dL (74-106); PHOSPHORUS 1.5 mg/dL (2.5-4.9); POTASSIUM 3.1 mmol/L (3.5-5.1); SODIUM SERUM 142 mmol/L (136-145); UREA NITROGEN, BLOOD 7 mg/dL (7-18)
[2021-05-31 07:47] LABS: WHITE BLOOD COUNT (AUTO) 47.7 K/uL (4.3-11.0)
--- NOTE | 2021-05-31 07:50 | NUR ---
RN NOTE PER LAB CRITICAL WBC OF 47.7. PAGED MD Kellie FOXSIAN THROUGH [employer]. MD NOTIFIED. NO ORDERS PLACED.
[2021-05-31] MEDS: METRONIDAZOLE 500 MG TABLET PO SCH ×4 (08:01→21:29)
[2021-05-31] MEDS: PANTOPRAZOLE 40 MG/PACK PACK PO SCH (08:01)
[2021-05-31] MEDS ORDERED: Sodium Phosphate 15 MMOL in IV NS 0.9% 245 ML IV SCH (10:00)
[2021-05-31] MEDS: POTASSIUM CL. PREMIX PERIPHER. 50 ML IV SCH ×4 (10:10→15:41)
[2021-05-31 12:00] VITALS: BP 128/53
[2021-05-31 13:36] LABS: BAND % (MANUAL) 2 % (0.0-5.0); LYMPHOCYTES % (MANUAL) 1 % (16-48); MONOCYTES % (MANUAL) 3 % (0-11.0); NEUTROPHILS % (MANUAL) 94 (42-76)
[2021-05-31] MEDS: INSULIN REGULAR, HUMAN 100 UNIT/ML 3 ML VIAL SQ PRN ×2 (13:46→19:23)
--- NOTE | 2021-05-31 14:00 | NUR ---
RN NOTE GI CONSULT COMPLETED PER DR. BARDALES. EXPLAINED TO PT ABOUT UPCOMING PROCEDURES. NO ORDERS PLACED
[2021-05-31] MEDS: IV NS 0.9% 1,000 ML IV SCH (18:32)
--- NOTE | 2021-05-31 19:00 | NUR ---
RN OPENING NOTES RECEIVED REPORT FROM MORNING NURSE. PATIENT IN BED NO SOB NO DISTRESS. ON 2LPM VIA NC TOLERATED WELL. WITH R UA MIDLINE PATENT FLUSHES WELL. WITH ONGOING IVF OF PNS @ 125CC/HR. WITH SANZ CATHETER CONNECTED TO URINE BAG DRAINING WELL. VITAL SIGNS TAKEN AND RECORDED. HOB ELEVATED. CALL LIGHT WITHIN REACH. WILL CONTINUE TO MONITOR CLOSELY
[2021-05-31 20:00] VITALS: BP 140/70
[2021-05-31] MEDS: CEFTRIAXONE 1 G in IV D5W 50 ML IV SCH (21:30)
[2021-05-31] MEDS: ENOXAPARIN SODIUM 30 MG/0.3 ML DISP.SYRIN SQ SCH (21:34)
[2021-06-01] MEDS: BLOOD SUGAR DIAGNOSTIC 1 EACH STRIP IN SCH ×5 (00:42→23:32)
[2021-06-01 04:00] VITALS: BP 140/61
[2021-06-01] MEDS: IV NS 0.9% 1,000 ML IV SCH ×3 (05:26→20:44)
[2021-06-01 06:06] LABS: *SPE A/G RATIO 0.8 (0.7-1.7); *SPE ALPHA-1-GLOBULIN 0.3 g/dL (0.0-0.4); *SPE ALPHA-2-GLOBULIN 0.6 g/dL (0.4-1.0); *SPE BETA GLOBULIN 0.6 g/dL (0.7-1.3); *SPE M-SPIKE Not Observed g/dL (Not Observed)
[2021-06-01] MEDS: INSULIN REGULAR, HUMAN 100 UNIT/ML 3 ML VIAL SQ PRN ×4 (07:14→23:33)
--- NOTE | 2021-06-01 07:15 | NUR ---
RN NOTES PATIENT REMAINS IN STABLE CONDITION NO SOB NO DISTRESS, NO PAIN NOTED DURING THIS SHIFT. PATIENT STILL ON OXYGEN INHALATION 3LP VIA NC TOLERATED WELL. ALL SAFETY MEASURE IN PLACE, HOB ELEVATED, CALL LIGHT WITHIN REACH. ALL DUE MEDS GIVEN ORDERED. ALL NEEDS ATTENDED. ENDORSED
[2021-06-01 07:23] LABS: BASOPHILS # (AUTO) 0.2 K/uL (0.0-0.2); BASOPHILS % (AUTO) 0.3 % (0.0-2.0); EOSINOPHILS % (AUTO) 0.8 % (0.0-6.0); HEMATOCRIT 36 % (33-45); HEMOGLOBIN 11.3 g/dL (11.5-14.8); LYMPHOCYTES # (AUTO) 1.7 K/uL (0.8-4.8); LYMPHOCYTES % (AUTO) 3.2 % (20.0-44.0); MEAN CORPUSCULAR HGB CONC 31 g/dl (31.0-36.0); MEAN CORPUSCULAR VOLUME 120 fL (82-100); MONOCYTES # (AUTO) 2.4 K/uL (0.1-1.30); MONOCYTES % (AUTO) 4.6 % (2.0-12.0); NEUTROPHILS # (AUTO) 48.4 K/uL (1.8-8.9); NEUTROPHILS % (AUTO) 91.1 % (43.0-81.0); PLATELET COUNT (AUTO) 433 K/uL (150-450); RED BLOOD CELL COUNT(AUTO) 2.99 MIL/uL (4.0-5.2)
--- NOTE | 2021-06-01 07:30 | NUR ---
RN OPENING NOTES MED SURGE RECEIVED PATIENT IN BED NO SIGNS OF SOB AT THIS TIME ON 3LPM VIA NC WELL TOLERATED, O2 SAT 98%. WITH RIGHT UPPER MIDLINE FLUSHING WELL. WITH ONGOING NS 125ML/HR. SANZ CATHETER CONNECTED TO URINE BAG DRAINING WELL, WILL FOLLOW UP WITH LABORATORY FOR POTASSIUM RESULTS. SAFETY MEASUREMENTS IMPLEMENTED. HOB ELEVATED, BED ON ITS LOWEST POSITION, CALL LIGHT WITHIN REACH. WILL CONTINUE TO MONITOR.
[2021-06-01 07:33] LABS: WHITE BLOOD COUNT (AUTO) 53.1 K/uL (4.3-11.0)
--- NOTE | 2021-06-01 07:35 | NUR ---
RN NOTES CRITICAL RESULT WBC 53.[address] BENEDICT STORY. NNO
[2021-06-01 08:00] VITALS: BP 104/64
[2021-06-01] MEDS: METRONIDAZOLE 500 MG TABLET PO SCH ×4 (08:19→21:12)
[2021-06-01] MEDS: PANTOPRAZOLE 40 MG/PACK PACK PO SCH (08:19)
[2021-06-01] MEDS: LEVOTHYROXINE INJ 100 MCG VIAL IV SCH (08:22)
[2021-06-01 08:23] LABS: CALCIUM, SERUM 7.6 mg/dL (8.5-10.1); CREATININE 0.6 mg/dL (0.6-1.3); MAGNESIUM 1.9 mg/dL (1.8-2.4); PHOSPHORUS 2.1 mg/dL (2.5-4.9); POTASSIUM 3.5 mmol/L (3.5-5.1)
[2021-06-01 09:45] LABS: BAND % (MANUAL) 2 % (0.0-5.0); MONOCYTES % (MANUAL) 2 % (0-11.0); MYELOCYTES % 1 % (0-0); NEUTROPHILS % (MANUAL) 95 (42-76)
[2021-06-01] MEDS ORDERED: Sodium Phosphate 30 MMOL in IV NS 0.9% 250 ML IV SCH (10:00)
[2021-06-01 13:45] LABS: LYMPHOCYTES % (MANUAL) 0 % (16-48)
--- NOTE | 2021-06-01 14:32 | NUR ---
RN NOTES REQUEST FOR RELEASE OF AUTHORIZATION FOR THIS PATIENT, PER [facility], THEIR FAX IS DOWN AND THE ONLY WAY IS TO SEND RECORDS VIA MAIL OR EMAIL. AWAITING RESPONSE/ANSWER FROM [facility] FOR MEDICAL RECORDS. PLEASE CHECK [facility] EMAIL INBOX.
--- NOTE | 2021-06-01 14:56 | NUR ---
RN NOTES SENT A MESSAGE TO DR. CASTRO ORDER FOR XR UPPER GI W GASTROGRAFFIN FOR ABDOMINAL DRAINAGE. PER RADIOLOGIST, PROCEDURE WILL NOT DO MUCH FOR ABDOMINAL DRAINAGE BUT RATHER A SMALL BOWEL FOLLOW THROUGH WILL BE BETTER. WAITING FOR DR. CASTRO'S REPLY
[2021-06-01 16:00] VITALS: BP 122/54
--- NOTE | 2021-06-01 18:26 | NUR ---
RN NOTES PER DAUGHTER CHRISTINE - SHE WAS BALE TO SPEAK WITH [place] CONDITIONER TUMBLER OPERATOR RE WBC RESULTS OF THER MOM IN MAR 19, 2021 - WBC 32.4 PLATELET WAS 525,000, SEPTEMBER 2020 - WBC 41.1, SEPTEMBER 2020 - WBC 23.1 SHE ALSO TALKED TO DR. CASTRO AND PER TO RELAY RESULTS TO DR. BENEDICT STORY PER DAUGHTER IF THESE RESULTS COULD HELP, SHE WANTS HER MOTHER TO GET DISCHARGED TOMORROW
--- NOTE | 2021-06-01 18:31 | NUR ---
RN NOTES ALSO YOU COULD REACH THEIR [place] PARTITION ASSEMBLY MACHINE OPERATOR DR. RENEE AT [phone]
--- NOTE | 2021-06-01 19:00 | NUR ---
RN CLOSING NOTES MED SURGE PATIENT IS IN BED, RESTING, ALERT AND ORIENTED X3-4 PATIENT IS ON OXYGEN AT 3 LPM VIA NASAL CANULA WITH NO SIGNS OF LABORED BREATHING AT THIS TIME. NO COMPLAIN OF PAIN OR DISCOMFORT. 75% INTAKE ACHIEVED, PATIENT WITH RIGHT UPPER ARM MIDLINE CLEAN AND PATENT, IV FLUID SODIUM CHLORIDE 125 MIL/HR RUNNING. PT IS WITH SANZ CATHETER TO URINE BAG WITH YELLOWISH URINE DRAINING. COMFORT MEASURES PROVIDED. SAFETY MEASURES IN PLACE WITH BED LOCKED AND IN LOWEST POSITION, SIDE RAILS UP AND CALL LIGHT WITHIN REACH. ALL NEEDS MET WILL ENDORSE TO NEXT SHIFT FOR CONTINUITY OF CARE.
--- NOTE | 2021-06-01 19:56 | NUR ---
RN NOTE PATIENT ALERT AND ORIENTED X3, ABLE TO MAKE NEEDS KNOWN. ON O2 3L VIA NASAL CANNULA, NO S/S OF RESPIRATORY DISTRESS. DENIES ANY PAIN AT THIS TIME. CASI MIDLINE NOTED INFUSING NS @ 125ML/HR, NO S/S OF INFILTRATION. BED LOCKED AND IN LOWEST POSITION. CALL LIGHT WITHIN REACH. ALL NEEDS ANTICIPATED.
[2021-06-01 20:00] VITALS: BP 123/58
[2021-06-01] MEDS: ENOXAPARIN SODIUM 30 MG/0.3 ML DISP.SYRIN SQ SCH (21:16)
[2021-06-02] MEDS: IV NS 0.9% 1,000 ML IV SCH ×3 (02:46→18:38)
[2021-06-02 04:00] VITALS: BP 114/61
[2021-06-02] MEDS: BLOOD SUGAR DIAGNOSTIC 1 EACH STRIP IN SCH ×3 (06:01→18:17)
[2021-06-02] MEDS: INSULIN REGULAR, HUMAN 100 UNIT/ML 3 ML VIAL SQ PRN ×2 (06:02→18:32)
[2021-06-02 06:37] LABS: BASOPHILS # (AUTO) 0.1 K/uL (0.0-0.2); BASOPHILS % (AUTO) 0.2 % (0.0-2.0); EOSINOPHILS % (AUTO) 0.5 % (0.0-6.0); HEMATOCRIT 32 % (33-45); HEMOGLOBIN 10.1 g/dL (11.5-14.8); LYMPHOCYTES # (AUTO) 1.3 K/uL (0.8-4.8); LYMPHOCYTES % (AUTO) 2.4 % (20.0-44.0); MEAN CORPUSCULAR HGB CONC 31 g/dl (31.0-36.0); MEAN CORPUSCULAR VOLUME 120 fL (82-100); MONOCYTES # (AUTO) 1.7 K/uL (0.1-1.30); NEUTROPHILS # (AUTO) 51.7 K/uL (1.8-8.9); NEUTROPHILS % (AUTO) 93.9 % (43.0-81.0); PLATELET COUNT (AUTO) 416 K/uL (150-450); RED BLOOD CELL COUNT(AUTO) 2.69 MIL/uL (4.0-5.2)
--- NOTE | 2021-06-02 07:13 | NUR ---
RN NOTE PATIENT ALERT AND ORIENTED X3. ON O2 4L VIA NASAL CANNULA, O2 SAT 94%. CASI MIDLINE NOTED INFUSING NS @ 125ML/HR, NO S/S OF INFILTRATION. KEPT CLEAN, DRY, AND COMFORTABLE. BED LOCKED AND IN LOWEST POSITION. CALL LIGHT WITHIN REACH. WILL ENDORSE TO AM SHIFT.
--- NOTE | 2021-06-02 08:00 | NUR ---
RN NOTE PER LAB CRITICAL LAB WBC OF 55.0. NOTIFIED DIRECTOR OF RESERVATIONS MAAME ORTEGA.
[2021-06-02] MEDS: PANTOPRAZOLE 40 MG/PACK PACK PO SCH (08:58)
[2021-06-02] MEDS: METRONIDAZOLE 500 MG TABLET PO SCH ×4 (08:59→20:42)
[2021-06-02] MEDS: LEVOTHYROXINE INJ 100 MCG VIAL IV SCH (09:00)
[2021-06-02 09:07] LABS: CALCIUM, SERUM 7.4 mg/dL (8.5-10.1); CREATININE 0.6 mg/dL (0.6-1.3); POTASSIUM 3.4 mmol/L (3.5-5.1)
[2021-06-02 09:34] LABS: ALBUMIN 1.9 g/dL (3.4-5.0); BILIRUBIN,TOTAL 0.1 mg/dL (0.2-1.0); MAGNESIUM 1.6 mg/dL (1.8-2.4); PHOSPHORUS 2.9 mg/dL (2.5-4.9); TOTAL PROTEIN, SERUM 5.9 g/dL (6.4-8.2)
[2021-06-02 12:00] VITALS: BP 137/51
[2021-06-02 12:43] LABS: BAND % (MANUAL) 1 % (0.0-5.0); LYMPHOCYTES % (MANUAL) 1 % (16-48); MONOCYTES % (MANUAL) 2 % (0-11.0); NEUTROPHILS % (MANUAL) 96 (42-76)
[2021-06-02] MEDS: POTASSIUM CL. PREMIX PERIPHER. 50 ML IV SCH ×3 (17:39→19:00)
[2021-06-02] MEDS: HYDROXYUREA 500 MG CAPSULE PO SCH (17:39)
[2021-06-02] MEDS: Magnesium 1GM/D5W 100ML PREMIX 100 ML IV SCH ×2 (17:39→18:15)
--- NOTE | 2021-06-02 19:00 | NUR ---
RN NOTE RECEIVED PATIENT IN BED RESTING ALERT ORIENTED X3 VERBALLY RESPONSIVE ON 5L OXYGEN VIA NASAL CANNULA O2:95% IV SITE IS RIGHT UPPER ARM MILD LINE INTACT PATENT ON IV HYDRATION NS 125CC/HR, SANZ CATHETER IN PLACE URINE DRAINING DARK YELLOW AND CLEAR BY GRAVITY SAFETY MEASURE IMPLEMENT BED IN LOW POSITION AND LOCKED,CALL LIGHT WITHIN REACH,HEAD OF THE BED ELEVATED,CONTINUE TO MONITOR.
--- NOTE | 2021-06-02 19:08 | NUR ---
RN CLOSING NOTE PT STABLE ON 5L OF NC SAT >93%. BP AND HR WNL. PT A/O X4. ATE 50% DINNER INSULIN 215 AND COVERED WITH 4 UNITS. PT LOW BED POSITOIN WITH LOCKED BED. ENDORSED TO DIOGENES.
[2021-06-02 20:00] VITALS: BP 119/50
[2021-06-02] MEDS: ENOXAPARIN SODIUM 30 MG/0.3 ML DISP.SYRIN SQ SCH (21:08)
[2021-06-02] MEDS: MORPHINE SULFATE INJ 2 MG/ML DISP.SYRIN IV PRN (22:53)
--- NOTE | 2021-06-02 22:53 | NUR ---
RN NOTE MORPHINE 2MG/ML PRN GIVEN FOR BACK PAIN 04/10 CONTINUE TO MONITOR.
--- NOTE | 2021-06-02 23:40 | NUR ---
RN NOTE PATIENT HR IS [address] POOLE,HE ORDERED TRANSFER PATIENT FROM MED SURG TO TELEMETRY MONITORING,NOTED AND CARRIED OUT.
[2021-06-03] VITALS (59 sets, daily range): BP systolic 76–138; BP diastolic 28–108
--- NOTE | 2021-06-03 | NUR ---
RN NOTE BLOOD SUGAR IS 127 NOT REQUIRED INSULIN AT THIS TIME.
--- NOTE | 2021-06-03 00:30 | NUR ---
RN NOTE CALLED DR POOLE PATIENT ON TELE MONITORING AND SHOWS SVT HR 174 HE ORDERED STAT EKG AND VANCOMYCIN FOR PHARMACY TO DOSE AND ZOSYN 3.375 Q 6 HOURS FOR SEPSIS NOTED AND CARRIED OUT.
[2021-06-03] MEDS: BLOOD SUGAR DIAGNOSTIC 1 EACH STRIP IN SCH ×4 (00:36→17:30)
[2021-06-03] MEDS ORDERED: ZOSYN IVPB 3.375 G in IV D5W 50ml IV SCH (00:46)
[2021-06-03] MEDS ORDERED: VANCOMYCIN 1 GM VIAL ONE (00:49)
[2021-06-03] MEDS ORDERED: VANCOMYCIN 1 GM in IV D5W 250ml IV ONE (01:00)
[2021-06-03] MEDS ORDERED: LEVOFLOXACIN 500 MG /D5W 100ML 500 MG in PREMIX 1 EA IV SCH (01:00)
--- NOTE | 2021-06-03 01:00 | NUR ---
RN NOTE EKG DONE SHOWS SVT REPORTED TO DR POOLE HE DISCONTINUED VONCOMYCIN AND ZOSYN,HE ORDERED LEVAQUIN [address] ORDERED PATIENT TRANSFER TO ICU FOR CLOSE MONITORING,NOTED AND CARRIED OUT,CALLED PATIENT DAUGHTER TO NOTIFY HER NOT ANSWERED,LEFT VOICE MAIL MESSAGE.
[2021-06-03] MEDS ORDERED: LEVOFLOXACIN 500 MG /D5W 100ML 100 ML IV ONE (01:16)
[2021-06-03] MEDS: IV NS 0.9% 1,000 ML IV SCH ×2 (01:23→09:05)
--- NOTE | 2021-06-03 01:30 | NUR ---
RN NOTE PATIENT TRANSFERRED TO ICU ROOM 253 REPORT GIVEN TO THAIS GARNICA FOR CONTINUATION OF CARE.
[2021-06-03] MEDS ORDERED: ADENOSINE 6 MG/2 ML VIAL IVP ONE ×2 (02:00→02:30)
[2021-06-03] MEDS ORDERED: PHENYLEPHRINE 10 MG/ML VIAL ONE (02:45)
[2021-06-03] MEDS: PHENYLEPHRINE 50 MG in IV NS 0.9% 245 ML IV PRN ×2 (02:55→16:17)
--- NOTE | 2021-06-03 03:00 | NUR ---
ICU NOTES 0130 Received patient transferred in from [facility] by bed for SVT 170's in no acute distress.Patient awake alert oriented x1-2.DNR/DNI status.On 5LNC saturation 85% then up to 96%.FC to gravity with small urine output.IVF NS started at 125 ml/hr via CASI ML. 0140 Called for orders.Responded and wants to know Cardiology television production technician to read EKG. Per telephone exchange its relayed to . 0150 called he said he is television production technician.Updated of patient status orders received and carried out. 0221 Patient still on SVT 170 Adenosine 6 mg Rapid IVP given.Rhythm converted to SR 88,64 down SB 45. 0247 Patient desat to 88%.Schaefer,RT changed NC to SM 8L sat up to 97%. 0255 Patient hypotensive BP 87/42 Rupert Synephrine 0.5 MCG/KG/MIN started as ordered.Continue monitoring.
[2021-06-03] MEDS: IV NS 0.9% 250 ML IV PRN ×2 (03:21→22:24)
[2021-06-03 04:54] LABS: BASOPHILS # (AUTO) 0.2 K/uL (0.0-0.2); BASOPHILS % (AUTO) 0.3 % (0.0-2.0); EOSINOPHILS % (AUTO) 0.1 % (0.0-6.0); HEMATOCRIT 36 % (33-45); LYMPHOCYTES # (AUTO) 1.7 K/uL (0.8-4.8); LYMPHOCYTES % (AUTO) 2.5 % (20.0-44.0); MEAN CORPUSCULAR HGB CONC 31 g/dl (31.0-36.0); MEAN CORPUSCULAR VOLUME 122 fL (82-100); MONOCYTES % (AUTO) 2.9 % (2.0-12.0); NEUTROPHILS # (AUTO) 63.3 K/uL (1.8-8.9); NEUTROPHILS % (AUTO) 94.2 % (43.0-81.0); PLATELET COUNT (AUTO) 542 K/uL (150-450); RED BLOOD CELL COUNT(AUTO) 2.94 MIL/uL (4.0-5.2)
[2021-06-03 05:17] LABS: CALCIUM, SERUM 7.7 mg/dL (8.5-10.1); CARBON DIOXIDE 24 mmol/L (21-32); CHLORIDE 114 mmol/L (98-107); CREATININE 0.9 mg/dL (0.6-1.3); GLUCOSE 166 mg/dL (74-106); POTASSIUM 4.3 mmol/L (3.5-5.1); SODIUM SERUM 144 mmol/L (136-145); UREA NITROGEN, BLOOD 13 mg/dL (7-18)
[2021-06-03 05:21] LABS: WHITE BLOOD COUNT (AUTO) 67.3 K/uL (4.3-11.0)
[2021-06-03 06:09] LABS: BAND % (MANUAL) 5 % (0.0-5.0); LYMPHOCYTES % (MANUAL) 1 % (16-48); MONOCYTES % (MANUAL) 1 % (0-11.0); MYELOCYTES % 1 % (0-0); NEUTROPHILS % (MANUAL) 90 (42-76); PROMYELOCYTES % 2 % (0-0)
--- NOTE | 2021-06-03 07:00 | NUR ---
ICU NOTES Patient resting in no acute distress.Tele reading remains SR 80'-100's.Continue on Rupert Synephrine gtt at 0.5 mcg.Patient incontinent of brown stool.Kept clean and dry.Turned and repositioned to comfort off loading pressure points. notified of WBC 67.3 no new orders received. Report given to day shift for JOB.
--- NOTE | 2021-06-03 07:24 | NUR ---
RN OPENING NOTES; RECEIVED PT IN BED IN SUPINE POS. PT HAS NO C/O PAIN AT THIS TIME. NO DISTRESS NOTED. PT IS DNR/DNI. CASI ML NOTED, PATENT NO SIGNS OF INFILTRATION. PT ON SOFT DIET. WBC 55, MD AWARE. SAFETY MEASURES RENDERED, BED IN LOWEST POS. LOCKED WITH CALL LIGHT WITHIN REACH. WILL CONTINUE TO MONITOR.
[2021-06-03] MEDS: INSULIN REGULAR, HUMAN 100 UNIT/ML 3 ML VIAL SQ PRN ×3 (07:48→17:28)
[2021-06-03] MEDS: PANTOPRAZOLE 40 MG/PACK PACK PO SCH (08:08)
[2021-06-03] MEDS: METRONIDAZOLE 500 MG TABLET PO SCH ×5 (08:08→21:22)
[2021-06-03] MEDS: HYDROXYUREA 500 MG CAPSULE PO SCH (08:29)
--- NOTE | 2021-06-03 09:40 | NUR ---
RN NOTES; PT HR WENT UP TO 145. EKG STAT DONE. PT IN AFIB. DR. SHERIFF NOTIFIED AND IS AWARE. NO NEW ORDERS AT THIS TIME. WILL CONTINUE TO MONITOR.
[2021-06-03] MEDS: IPRATROPIUM NEB FS 0.5 MG/2.5 ML AMPUL.NEB NEB SCH ×4 (11:30→23:18)
[2021-06-03] MEDS ORDERED: PIPERACILLIN /TAZOBACTAM 3.375 G in IV D5W 50 ML IV SCH (12:00)
[2021-06-03] MEDS ORDERED: VANCOMYCIN 1 GM in IV D5W 250 ML IV SCH (13:00)
[2021-06-03] MEDS ORDERED: AMIODARONE 150 MG in IV D5W 100 ML IV ONE (13:00)
[2021-06-03] MEDS ORDERED: MEROPENEM 500 MG in IV NS 0.9% 50 ML IV SCH (13:00)
[2021-06-03] MEDS ORDERED: AMIODARONE 450 MG in IV D5W 241 ML IV PRN (13:00)
[2021-06-03 13:16] LABS: THYROID STIMULATING HORMONE 1.784 uIU/mL (0.358-3.74)
[2021-06-03] MEDS: MEROPENEM 1 G in IV NS 0.9% 100 ML IV SCH (13:37)
[2021-06-03] MEDS ORDERED: HYDROXYUREA 500 MG CAPSULE PO ONE (16:00)
[2021-06-03] MEDS ORDERED: IV NS 0.9% 1,000 ML IV PRN (17:30)
--- NOTE | 2021-06-03 18:49 | NUR ---
RN CLOSING NOTES PT IN BED RESTING IN SUPINE POS. PT A/OX2, ON NC @8L.PT CURRENTLY SATTING AT 96%. PT AFIB CURRENT HR IS 122, AWARE. ON AMIO DRIP STARTED AT 1419 AT 1MG/HR. DOSE NEEDS TO BE ADJUSTED TO 0.5MG AT 2019. WILL ENDORSE TO MANAGER OF PATIENT RN. NEOSYNEPRINE RESTARTED AT 1617, PATENT AND RUNNING WELL. ALL MEDICATIONS GIVEN AND WELL TOLERATED. PT KEPT CLEAN, DRY AND COMFORTABLE. BED IN LOWEST POS, LOCKED, WITH CALL LIGHT WITHIN REACH. ENDORSED TO MANAGER OF PATIENT RN.
--- NOTE | 2021-06-03 20:00 | NUR ---
agricultural extension agent. initial assessment. received the pt rest on the bed. awake, alert, follow commands. color television console monitor showing nsr. oxygen simple mask. hob elevated. afebrile, fc patent. urine draining. pt is tachypneic. will continue to monitor
--- NOTE | 2021-06-03 20:47 | NUR ---
agriculture extension specialist. pt is tachypneic and desaturated. non rebreather applied. sat now 98%. will continue to monitor.
[2021-06-03] MEDS: ENOXAPARIN SODIUM 30 MG/0.3 ML DISP.SYRIN SQ SCH (21:23)
--- NOTE | 2021-06-03 21:51 | NUR ---
PEDIATRIC PHYSICIAN ASSISTANT. PT IS TACHYPNEIC, NOTIFIED MD POOLE. TAB FLAGYL 500MG PO CHANGED TO IV.
[2021-06-03] MEDS ORDERED: FUROSEMIDE 20 MG/2 ML VIAL IV ONE (22:00)
[2021-06-03] MEDS ORDERED: LEVOFLOXACIN 250 MG /D5W 50 ML 250 MG in PREMIX 1 EA IV SCH (23:00)
[2021-06-03] MEDS ORDERED: METRONIDAZOLE 500MG/ NS 100ML 100 ML IV ONE (23:18)
[2021-06-03] MEDS: METRONIDAZOLE 500MG/ NS 100ML 500 MG in PREMIX 1 EA IV SCH (23:21)
[2021-06-04] VITALS (83 sets, daily range): BP systolic 78–143; BP diastolic 25–82
[2021-06-04] MEDS ORDERED: FUROSEMIDE 20 MG/2 ML VIAL IV ONE
[2021-06-04] MEDS: INSULIN REGULAR, HUMAN 100 UNIT/ML 3 ML VIAL SQ PRN ×3 (00:22→18:54)
[2021-06-04] MEDS: BLOOD SUGAR DIAGNOSTIC 1 EACH STRIP IN SCH ×4 (01:56→18:53)
[2021-06-04] MEDS: VANCOMYCIN 0.75 GM in IV D5W 250 ML IV SCH ×2 (01:56→13:24)
[2021-06-04] MEDS: MEROPENEM 1 G in IV NS 0.9% 100 ML IV SCH ×2 (02:09→15:02)
[2021-06-04] MEDS: IPRATROPIUM NEB FS 0.5 MG/2.5 ML AMPUL.NEB NEB SCH ×6 (03:25→23:21)
[2021-06-04 04:28] LABS: BASOPHILS # (AUTO) 0.5 K/uL (0.0-0.2); BASOPHILS % (AUTO) 0.7 % (0.0-2.0); EOSINOPHILS % (AUTO) 0.1 % (0.0-6.0); HEMATOCRIT 36 % (33-45); HEMOGLOBIN 10.8 g/dL (11.5-14.8); LYMPHOCYTES # (AUTO) 1.1 K/uL (0.8-4.8); LYMPHOCYTES % (AUTO) 1.3 % (20.0-44.0); MEAN CORPUSCULAR HGB CONC 30 g/dl (31.0-36.0); MEAN CORPUSCULAR VOLUME 122 fL (82-100); MONOCYTES # (AUTO) 2.5 K/uL (0.1-1.30); MONOCYTES % (AUTO) 3.1 % (2.0-12.0); NEUTROPHILS # (AUTO) 74.8 K/uL (1.8-8.9); NEUTROPHILS % (AUTO) 94.8 % (43.0-81.0); PLATELET COUNT (AUTO) 605 K/uL (150-450); RED BLOOD CELL COUNT(AUTO) 2.93 MIL/uL (4.0-5.2)
[2021-06-04 04:42] LABS: CALCIUM, SERUM 7.7 mg/dL (8.5-10.1); CARBON DIOXIDE 20 mmol/L (21-32); CHLORIDE 111 mmol/L (98-107); CREATININE 1.1 mg/dL (0.6-1.3); GLUCOSE 213 mg/dL (74-106); MAGNESIUM 1.8 mg/dL (1.8-2.4); POTASSIUM 4.4 mmol/L (3.5-5.1); SODIUM SERUM 140 mmol/L (136-145); UREA NITROGEN, BLOOD 20 mg/dL (7-18)
[2021-06-04] MEDS ORDERED: METRONIDAZOLE 500MG/ NS 100ML 100 ML IV ONE (06:12)
--- NOTE | 2021-06-04 06:12 | NUR ---
sewage reticulation drafting officer. at 0400 nonrebreather changed to simple mask . sat 99%. '
--- NOTE | 2021-06-04 06:16 | NUR ---
agricultural research director. am care given. remaining same oxygen tolerated well.
[2021-06-04] MEDS: METRONIDAZOLE 500MG/ NS 100ML 500 MG in PREMIX 1 EA IV SCH (06:20)
--- NOTE | 2021-06-04 07:06 | NUR ---
SENIOR FIELD ENGINEER. IVF HELD. PER MD POOLE
[2021-06-04 07:12] LABS: BAND % (MANUAL) 1 % (0.0-5.0); EOSINOPHILS % (MANUAL) 1 % (0-4); LYMPHOCYTES % (MANUAL) 2 % (16-48); MONOCYTES % (MANUAL) 1 % (0-11.0); NEUTROPHILS % (MANUAL) 95 (42-76)
--- NOTE | 2021-06-04 07:20 | NUR ---
CASH REGISTER MECHANIC. AM LAB WBC 79. LATRICIA POOLE. NOT CALL BACK.
--- NOTE | 2021-06-04 07:21 | NUR ---
MANUFACTURING PROJECT ENGINEER. WBC 79. NOTIFIED MD ELMORE.
--- NOTE | 2021-06-04 07:30 | NUR ---
OPENING NOTE: REPORT RECEIVED FROM CHRISTINE GARNICA. PT IS LETHARGIC, ORIENTED TO SELF ONLY. NEOSYNEPHRINE GTT INFUSING PER MD ORDERS, CURRENTLY INFUSING AT 0.5 MCG/KG/MIN. AMIODARONE GTT INFUSING AT 0.5 MCG/MIN PER PROTOCOL, TO END AT 1400 TODAY. PT CURRENTLY ON SIMPLE MASK 5L FROM A TREATMENT, AFTER TREATMENT WILL BE PUT ON 5L NC PER RT. PT CHECKED ON HOURLY AND PRN BY NURSING STAFF.
[2021-06-04] MEDS ORDERED: HYDROXYUREA 500 MG CAPSULE PO SCH ×2 (09:00→09:45)
[2021-06-04] MEDS ORDERED: PANTOPRAZOLE 40 MG VIAL IV SCH (09:00)
[2021-06-04] MEDS ORDERED: ALLOPURINOL 100 MG TABLET PO SCH (10:00)
--- NOTE | 2021-06-04 10:24 | NUR ---
PER DR. RIVERA PT CAN BE NPO EXCEPT MEDS. AM MEDS GIVEN WITH SMALL SIPS OF WATER. AFTER MEDS COMPLETED PT STARTED COUGHING, COUGH WAS STRONG AND SOUNDED PRODUCTIVE, BUT PATIENT APPEARED TO SWALLOW SPUTUM. DR. RIVERA NOTIFIED, AN NG TUBE WILL BE INSERTED FOR FURTHER MEDICATIONS D/T ASPIRATION RISK.
--- NOTE | 2021-06-04 10:49 | NUR ---
PT'S DAUGHTER CHRISTINE CALLED. RN UPDATED HER ON PATIENTS STATUS AND THAT PT IS POSSIBLY ASPIRATING WITH FOOD OR DRINK. RN EXPLAINED THAT AN NG TUBE WILL BE INSERTED PRIOR TO NEXT DOSE OF PO MEDS AT 1400. CHRISTINE ASKED IF THE NG WILL BE FOR FOOD OR JUST MEDICATIONS. RN EXPLAINED JUST FOR MEDICATIONS AT THIS TIME. CHRISTINE STATED THAT THERE IS AN ADVANCED DIRECTIVE SAYING THEY DO NOT WANT PT TO HAVE ALTERNATE NUTRITION/TUBE FEEDING. CHRISTINE REQUESTED THAT RN WAIT TO INSERT NG TUBE UNTIL SHE HAS A CHANCE TO CONSULT WITH PT'S PROTOTYPE MACHINIST AND THE REST OF THE FAMILY IF THEY WILL ALLOW NG TUBE TO BE INSERTED FOR MEDICATIONS. PT IS A DNR/DNI. WILL FOLLOW UP WITH CHRISTINE IF NOT HEARD FROM HER BY 1400.
--- NOTE | 2021-06-04 11:58 | NUR ---
PER CONVERSATION WITH MAAME ORTEGA NOZZLE OPERATOR, PERSONAL RN SOCIAL SERVICES HIMANSHU LAURA, [facility] EGG SETTER KIRA, PT'S DAUGHTER CHRISTINE NEGRO VIA SPEAKER PHONE PT IS NOT TO GET NG TUBE FOR MEDICATIONS OR ANYTHING. PT WILL MOST LIKELY BECOME COMFORT MEASURES. EVERYTHING WILL CONTINUE CURRENTLY EXCEPT NO NG TUBE UNTIL NOTIFIED BY CHRISTINE OR HIMANSHU ABOUT COMFORT CARE. CHRISTINE WILL TALK TO HER SISTER ABOUT COMING TO SEE PT. PER HIMANSHU PT'S CHILDREN ARE NOT VACCINATED, CHRISTINE WAS INSTRUCTED TO GET A RAPID COVID TEST PRIOR TO COMING TO THE HOSPITAL TO SEE PATIENT. WILL NOTIFY DR. FLORES ABOUT NO NG TUBE.
--- NOTE | 2021-06-04 12:22 | NUR ---
DR FLORES NOTIFIED OF ORDER FOR NO NGT AND PT UNABLE TO TAKE PILLS.
[2021-06-04 13:03] LABS: D-DIMER 3.33 mg/L(FEU (0.17-0.50)
[2021-06-04] MEDS: PHENYLEPHRINE 50 MG in IV NS 0.9% 245 ML IV PRN (13:03)
[2021-06-04] MEDS ORDERED: METRONIDAZOLE 250 MG TABLET PO SCH (14:00)
--- NOTE | 2021-06-04 19:14 | NUR ---
END OF SHIFT NOTE: VISHAL-SYNEPHRINE CURRENTLY INFUSING AT 0.4MCG/KG/MIN. PT'S SON WAS HERE FOR SEVERAL HOURS TODAY, PT'S DAUGHTER CHRISTINE GOT HERE AROUND 1830 AND WILL COME BACK TONIGHT, OTHER DAUGHTER IS DRIVING HERE FROM [facility] AND MIGHT BE HERE TONIGHT OR TOMORROW MORNING. AFTER ALL CHILDREN HAVE SEEN PATIENT, FAMILY WILL DECIDE ON COMFORT MEASURES. PT'S DAUGHTER CHRISTINE IS POA. OF THIS TIME O2 IS 2L/NC, PT'S BREATHING IS BEGINNING TO BE LABORED, SATS 91%. PT CHECKED ON HOURLY AND PRN BY NURSING STAFF.
[2021-06-04] MEDS: ENOXAPARIN SODIUM 30 MG/0.3 ML DISP.SYRIN SQ SCH (22:14)
[2021-06-05] VITALS (15 sets, daily range): BP systolic 45–95; BP diastolic 12–53
[2021-06-05] MEDS: VANCOMYCIN 0.75 GM in IV D5W 250 ML IV SCH
[2021-06-05] MEDS: INSULIN REGULAR, HUMAN 100 UNIT/ML 3 ML VIAL SQ PRN (00:18)
[2021-06-05] MEDS: BLOOD SUGAR DIAGNOSTIC 1 EACH STRIP IN SCH (00:31)
[2021-06-05] MEDS: MEROPENEM 1 G in IV NS 0.9% 100 ML IV SCH (02:07)
[2021-06-05] MEDS: IPRATROPIUM NEB FS 0.5 MG/2.5 ML AMPUL.NEB NEB SCH (02:54)
--- NOTE | 2021-06-05 02:57 | NUR ---
start of shift RN notes: Alert to self, non verbal. Noted with congestion. Vital signs going down. On phenylephrine drip, for low bp at 0.4mcg/kg/min, no adverse effect noted. Opens eyes, with no tracking. Kept clean and dry. O2SAt at 90% as of this time. On 2lpm O2 via nasal cannula increased to 4lpm. Will continue to monitor.
[2021-06-05] MEDS: PHENYLEPHRINE 50 MG in IV NS 0.9% 245 ML IV PRN (03:27)
[2021-06-05 05:02] LABS: BASOPHILS # (AUTO) 0.4 K/uL (0.0-0.2); BASOPHILS % (AUTO) 0.4 % (0.0-2.0); HEMATOCRIT 37 % (33-45); HEMOGLOBIN 10.8 g/dL (11.5-14.8); LYMPHOCYTES # (AUTO) 1.4 K/uL (0.8-4.8); LYMPHOCYTES % (AUTO) 1.4 % (20.0-44.0); MEAN CORPUSCULAR HGB CONC 29 g/dl (31.0-36.0); MEAN CORPUSCULAR VOLUME 124 fL (82-100); MONOCYTES # (AUTO) 2.1 K/uL (0.1-1.30); MONOCYTES % (AUTO) 2.1 % (2.0-12.0); NEUTROPHILS # (AUTO) 95.5 K/uL (1.8-8.9); NEUTROPHILS % (AUTO) 96.1 % (43.0-81.0); PLATELET COUNT (AUTO) 705 K/uL (150-450); RED BLOOD CELL COUNT(AUTO) 2.97 MIL/uL (4.0-5.2)
[2021-06-05 05:16] LABS: ALANINE AMINOTRANSFERASE 10 U/L (12-78); ALKALINE PHOSPHATASE 117 U/L (46-116); ASPARTATE AMINOTRANSFERASE 16 U/L (15-37); BILIRUBIN,TOTAL 0.2 mg/dL (0.2-1.0); CALCIUM, SERUM 7.9 mg/dL (8.5-10.1); CARBON DIOXIDE 20 mmol/L (21-32); CHLORIDE 109 mmol/L (98-107); CREATININE 1.6 mg/dL (0.6-1.3); GLUCOSE 158 mg/dL (74-106); POTASSIUM 4.4 mmol/L (3.5-5.1); SODIUM SERUM 139 mmol/L (136-145); TOTAL PROTEIN, SERUM 6.4 g/dL (6.4-8.2); UREA NITROGEN, BLOOD 26 mg/dL (7-18)
--- NOTE | 2021-06-05 05:34 | NUR ---
RN/ICU-PRONOUNCEMENT OF :CODE STATUS DNR,DNI.UNRESPONSIVE TO ANY FORM OF STIMULI.PUPILS ARE FIXED AND DILATED. APNEIC, RESPIRATION=0, EKG ASYSTOLEX2 LEADS, ABSENT HEART TONES,PERIPHERAL PULSES ARE ABSENT. NO SIGNS OF LIFE.PT. PRONOUNCED AT 0441. BY:PATY POSEY RN/BSN
[2021-06-05 06:16] LABS: D-DIMER 3.85 mg/L(FEU (0.17-0.50)
[2021-06-05 06:18] LABS: WHITE BLOOD COUNT (AUTO) 99.4 K/uL (4.3-11.0)
--- NOTE | 2021-06-05 06:40 | NUR ---
End of shift RN notes Patient's condition continuously deteriorating. Phenylepinephrine was already max at 3.0, still BP went down and O2 sat at 46% even though simple mask was placed and O2 increased to 10lpm. Noted with congestion and agonal breathing using accessory muscle. Unable to scale pain. Patient at 04:41. Called daughter Ernestina and relayed mother's passing away. Daugther was very grateful for the call. Called MD Dr. Bradshaw and relayed the information. Called [facility], and reporded the of the patient. Called Admitting relayed information.
[2021-06-05 06:58] LABS: BAND % (MANUAL) 14 % (0.0-5.0); LYMPHOCYTES % (MANUAL) 1 % (16-48); METAMYELOCYTES % 1 % (0-0); MONOCYTES % (MANUAL) 5 % (0-11.0); MYELOCYTES % 1 % (0-0); NEUTROPHILS % (MANUAL) 78 (42-76)
[2021-06-05] MEDS ORDERED: HYDROXYUREA 500 MG CAPSULE PO SCH (09:00)
== END 2021-06-05 07:36 | DRG 356 ==
LOC: ER 11:29 → TELE1 16:13 → MEDSG1 05-27 08:21 → ICU 06-03 01:06
PROVIDERS: ATTEND Nurse Practitioner Family
PROC: 0WJG4ZZ Inspection of Peritoneal Cavity, Percutaneous Endoscopic Approach (ICD-10-PCS; principal; 2021-05-26)
PROC: 05H933Z Insertion of Infusion Device into Right Brachial Vein, Percutaneous Approach (ICD-10-PCS; 2021-05-27)
PROC: 0DJ08ZZ Inspection of Upper Intestinal Tract, Via Natural or Artificial Opening Endoscopic (ICD-10-PCS; 2021-05-31)
DX: A04.9 Bacterial intestinal infection, unspecified (principal); A41.9 Sepsis, unspecified organism; J15.9 Unspecified bacterial pneumonia; J15.6 Pneumonia due to other Gram-negative bacteria; J96.02 Acute respiratory failure with hypercapnia; J96.01 Acute respiratory failure with hypoxia; R65.21 Severe sepsis with septic shock; J12.9 Viral pneumonia, unspecified; E87.1 Hypo-osmolality and hyponatremia; K56.7 Ileus, unspecified; D47.1 Chronic myeloproliferative disease; E87.2 Acidosis; I47.1 Supraventricular tachycardia; Z66 Do not resuscitate; Z51.5 Encounter for palliative care; K66.8 Other specified disorders of peritoneum; D75.839 Thrombocytosis, unspecified; E03.9 Hypothyroidism, unspecified; N18.9 Chronic kidney disease, unspecified; I12.9 Hypertensive chronic kidney disease with stage 1 through stage 4 chronic kidney disease, or unspecified chronic kidney disease; Z20.822 Contact with and (suspected) exposure to COVID-19; Z88.0 Allergy status to penicillin; D53.9 Nutritional anemia, unspecified; K57.30 Diverticulosis of large intestine without perforation or abscess without bleeding; Z79.899 Other long term (current) drug therapy; N20.0 Calculus of kidney; I25.10 Atherosclerotic heart disease of native coronary artery without angina pectoris; M41.9 Scoliosis, unspecified; L89.156 Pressure-induced deep tissue damage of sacral region; L98.9 Disorder of the skin and subcutaneous tissue, unspecified; R13.10 Dysphagia, unspecified; Z87.442 Personal history of urinary calculi; Z90.49 Acquired absence of other specified parts of digestive tract; K42.9 Umbilical hernia without obstruction or gangrene; K29.70 Gastritis, unspecified, without bleeding; K63.89 Other specified diseases of intestine; I70.0 Atherosclerosis of aorta; E83.42 Hypomagnesemia; E87.6 Hypokalemia; E83.39 Other disorders of phosphorus metabolism; I48.91 Unspecified atrial fibrillation; Y95 Nosocomial condition; E86.1 Hypovolemia
CPT/HCPCS: 36415; 36600; 71045-TC; 74018; 78226; 80048-TC; 80053-TC; 80061-TC; 80076-TC; 80202-TC; 82378; 82533; 82728-TC; 82784; 82803-TC; 82962-TC; 83540-TC; 83605-TC; 83690-TC; 83735-TC; 83880; 84100-TC; 84155; 84165; 84439-TC; 84443-TC; 84484-TC; 84550-TC; 85025-TC; 85396; 85730-TC; 86334; 87040-TC; 87081-TC; 87086-TC; 93307-TC; 94760-TC; 94799-TC; A4216; A6253; A9537; A9563; C9113; G0378; J0153; J0282; J0696; J1170; J1650; J1815; J1940; J1956; J2185; J2250; J2270; J2370; J2405; J2543; J2704; J2765; J3010; J3370; J3475; J3480; J3490; J7030; J7042; J7050; J7060; U0003